=== PATIENT | female | born 1945 | race Caucasian/White ===

== ENCOUNTER 2017-10-07 16:44 | Inpatient (IN) | payer OTHER ==
--- NOTE | 2017-10-07 17:31 | ED PDOC ---
HPI: Trauma/Fall - HPI Time Seen by Provider: 10/07/17 17:08 Chief Complaint (Nursing): Trauma Chief Complaint (Provider): Trauma History Per: Patient Onset/Duration Of Symptoms: Days (x 1) Injury Occurred (Timing): Today @ Additional Complaint(s): Marisol is a 72 year old female with a past medical history of Atrial Fibrillation who was brought by EMS to Emergency Department for trauma. Per EMS , patient is on Aspirin. Patient states she tripped and landed on her right arm today, and has moderate pain to her right arm and shoulder. Denies elbow injury, head injury and loss of consciousness. Patient has controlled hypertension with medications from [facility]. Patient is currently not on anticoagulants. Tetanus not up to date PMD: No Family Provider Past Medical History Reviewed: Historical Data, Nursing Documentation, Vital Signs Vital Signs: Last Vital Signs Temp 98.3 F 10/07/17 16:46 Pulse 63 10/07/17 16:46 Resp 18 10/07/17 16:46 BP 161/97 H 10/07/17 16:46 Pulse Ox 98 10/07/17 20:43 - Medical History Other PMH: MEDS: ASA 100MG/BISOPROLOL 2.5 MG DAILY/LISIONPRIL 20MG/HCTZ 12.5MG DAILY - Family History Family History: States: No Known Family Hx - Home Medications Home Medications: Ambulatory Orders Medication Instructions Recorded Alprazolam [Xanax] 0.75 mg pe PO PRN PRN 10/07/17 Lisinopril/Hydrochlorothiazide 0.5 - 1 tab PO DAILY 10/07/17 [Lisinopril-Hctz 20-12.5 mg Tab] Patient Own Control [Patient Own 1 tab PO DAILY 10/07/17 Control] Patient Own Control [Patient Own 1 tab PO DAILY 10/07/17 Control] - Allergies Allergies/Adverse Reactions: Allergies Allergy/AdvReac Type Severity Reaction Status Date / Time No Known Allergies Allergy Verified 10/07/17 16:46 Review of Systems ROS Statement: Except As Marked, All Systems Reviewed And Found Negative Musculoskeletal: Positive for: Shoulder Pain (Right), Arm Pain (Right). Negative for: Other (Elbow Pain) Physical Exam - Reviewed Nursing Documentation Reviewed: Yes Vital Signs Reviewed: Yes - Physical Exam Appears: Positive for: Well, Non-toxic Head Exam: Positive for: ATRAUMATIC, NORMAL INSPECTION, NORMOCEPHALIC Eye Exam: Positive for: Normal appearance Extremity: Positive for: Other (2 cm abrasion noted of her patellar surface- right knee) Neurologic/Psych: Positive for: Alert, Oriented - Laboratory Results Result Diagrams: 10/07/17 19:20 10/07/17 19:20 - ECG O2 Sat by Pulse Oximetry: 98 (RA) Pulse Ox Interpretation: Normal - Progress ED Course And Treament: ACETAMINOPHEN 650MG X 1 DOSE XRY RIGHT SHOULDER: (+) FX OF HUMERUS D/W DR. ELY. DR. MILLER IN ED TO SEE PATIENT. PATIENT TO BE ADMITTED FOR OR ON MONDAY. Medical Decision Making Medical Decision Making: Time: 17:12 Plan: - Adacel 0.5 ml IM - Tylenol 325 mg tab - Right Shoulder X-Ray Time: 17:58 - Discussed with patient about X-ray results. Time: 18:19 - Morphine 4 mg IVP once - Zofran Inj - CBC - PTT - Prothrombin Time - Partial Thromboplastin - BMP - Type and Screen Time: 20:11 - Discussed with Dr. Berg on medical service for admission. Will request Dr. Humphries (sugar mixer) to clear for OR. Scribe Attestation: Documented by Brayan Fraser, acting as a scribe for Meliton Del Angel PA-C Provider Scribe Attestation: All medical record entries made by the Scribe were at my direction and personally dictated by me. I have reviewed the chart and agree that the record accurately reflects my personal performance of the history, physical exam, medical decision making, and the department course for this patient. I have also personally directed, reviewed, and agree with the discharge instructions and disposition. Disposition - Clinical Impression Clinical Impression: Proximal humerus fracture - Patient ED Disposition Is Patient to be Admitted: Yes Discussed With : Christin Berg (on medical service for admission. Will request Dr. Humphries (House Painting Instructor) to clear for OR.) Doctor Will See Patient In The: Hospital - Disposition Referrals: FAMILY PROVIDER,NO [Primary Care Provider] - Disposition Time: 20:11 Condition: FAIR Instructions: Arm Fracture in Adults (ED) Forms: Ask Ziggy (Nepalese)
[2017-10-07] MEDS ORDERED: Tetanus/Diphtheria Toxoids 0.5 ml Syringe IM ONE (17:37)
[2017-10-07] MEDS ORDERED: Morphine 4 MG/ML VIAL ONE (19:09)
[2017-10-07 19:39] LABS: BASO % 0.2 % (0.0-2.0); EOS # 0.1 K/uL (0.0-0.7); EOS % 0.8 % (0.0-4.0); HEMATOCRIT 40.7 % (34.0-47.0); LYMPH # 1.7 K/uL (1.0-4.3); MEAN CELL VOLUME 91.2 fl (81.0-99.0); MEAN CORPUSCULAR HEMOGLOBIN 30.6 pg (27.0-31.0); MEAN CORPUSCULAR HGB CONC 33.5 g/dL (33.0-37.0); MEAN PLATELET VOLUME 8.5 fl (7.2-11.7); MONO # 0.5 K/uL (0.0-0.8); MONO % 5.5 % (0.0-10.0); NEUT # 6.5 K/uL (1.8-7.0); NEUT % 74.5 % (50.0-75.0); NRBC % 0.1 % (0.0-0.0); RED CELL DISTRIBUTION WIDTH 12.8 % (11.5-14.5); WHITE BLOOD COUNT 8.8 K/uL (4.8-10.8)
[2017-10-07 19:43] LABS: PARTIAL THROMBOPLASTIN TIME 34.3 Seconds (25.6-37.1)
[2017-10-07 19:50] LABS: CALCIUM 9.1 mg/dL (8.4-10.2)
--- NOTE | 2017-10-07 21:12 | CT ---
EXAM: CT Right Upper Extremity Without Intravenous Contrast, Shoulder CLINICAL HISTORY: 72 years old, female; Injury or trauma; Fall; Initial encounter; Fracture, traumatic injury; Displaced; Humerus; Right; Neck of humerus; Injury date: Today; Injury details: S/P falling/ tripped; Patient HX: A-fib HTN. Hysterectomy; Additional info: R/O FX of humerus TECHNIQUE: Axial computed tomography images of the right shoulder without intravenous contrast. All CT scans at this facility use one or more dose reduction techniques, viz.: automated exposure control; ma/kV adjustment per patient size (including targeted exams where dose is matched to indication; i.e. head); or iterative reconstruction technique. Coronal reformatted images were created and reviewed. COMPARISON: No relevant prior studies available. FINDINGS: Bones/joints: Comminuted fracture RIGHT proximal humerus involving surgical neck, greater tuberosity, lesser tuberosity. Mild impaction at level of surgical neck. Mild displacement of greater tuberosity fracture fragment. Mild degenerative changes of spine. No dislocation. Soft tissues: Soft tissue swelling about shoulder girdle. Lymph nodes: Calcified mediastinal and hilar lymph nodes. Lung apices: Minimal atelectasis/scarring. IMPRESSION: 1. RIGHT proximal humerus fracture. 2. Incidental/non-acute findings are described above.
[2017-10-08] MEDS: Oxycodone/Acetaminophen 5/325 mg Tab PO PRN ×3 (04:17→22:32)
--- NOTE | 2017-10-08 07:03 | RAD ---
PROCEDURE: CHEST RADIOGRAPH, 1 VIEW HISTORY: ROUTINE COMPARISON: None available. FINDINGS: LUNGS: Clear. PLEURA: No pneumothorax or pleural fluid seen. CARDIOVASCULAR: Normal. OSSEOUS STRUCTURES: No significant abnormalities. VISUALIZED UPPER ABDOMEN: Normal. OTHER FINDINGS: None. IMPRESSION: No active disease.
--- NOTE | 2017-10-08 07:05 | RAD ---
PROCEDURE: Radiographs of the Right Shoulder HISTORY: SHOULDER INJURY COMPARISON: No prior. FINDINGS: BONES: Greater tuberosity displaced fracture. JOINTS: Normal. Glenohumeral and acromioclavicular joints preserved. No osteoarthritis. SOFT TISSUES: Normal. OTHER FINDINGS: None. IMPRESSION: Greater tuberosity displaced fracture.
[2017-10-08 08:47] LABS: HEMATOCRIT 35.5 % (34.0-47.0); MEAN CELL VOLUME 90.8 fl (81.0-99.0); MEAN CORPUSCULAR HEMOGLOBIN 31.1 pg (27.0-31.0); MEAN CORPUSCULAR HGB CONC 34.2 g/dL (33.0-37.0); RED CELL DISTRIBUTION WIDTH 12.9 % (11.5-14.5); WHITE BLOOD COUNT 7.8 K/uL (4.8-10.8)
[2017-10-08 08:57] LABS: BLOOD UREA NITROGEN 23 mg/dl (7-17); CALCIUM 8.5 mg/dL (8.4-10.2); CARBON DIOXIDE 29 mmol/L (22-30); CHLORIDE 105 mmol/L (98-107); GFR AFRICAN-AMERICAN > 60; GLUCOSE,RANDOM 112 mg/dL (65-105); SODIUM 141 mmol/l (132-148)
[2017-10-08] MEDS ORDERED: Pneumococcal 23-Valent Vaccine IM ONE (09:00)
--- NOTE | 2017-10-08 10:55 | CP.PCM.HP ---
History of Present Illness - History of Present Illness History of Present Illness: CC: Fall, and Right Shoulder Pain History of Present Illness: A 72 year old female with a past medical history of Atrial Fibrillation who was brought by EMS to Emergency Department for trauma. Per EMS, patient is on Aspirin. Patient states she tripped and landed on her right arm today, and has moderate pain to her right arm and shoulder. Denies elbow injury, head injury and loss of consciousness. Patient has controlled hypertension with medications from [facility]. Patient is currently not on anticoagulants. Tetanus not up to date Present on Admission - Present on Admission Any Indicators Present on Admission: No Review of Systems - Review of Systems All systems: reviewed and no additional remarkable complaints except - Cardiovascular Cardiovascular: As Per HPI, Irregular Heart Rhythm. absent: Chest Pain Past Patient History - Infectious Disease Hx of Infectious Diseases: None - Past Medical History & Family History Past Medical History?: Yes Past Family History: Reviewed and not pertinent - Past Social History Smoking Status: Former Smoker Alcohol: None Drugs: Denies - CARDIAC Hx Cardiac Disorders: Yes Hx Atrial Fibrillation: Yes Hx Hypertension: Yes - PULMONARY Hx Respiratory Disorders: Yes Hx Bronchitis: Yes - NEUROLOGICAL Hx Neurological Disorder: No - HEENT Hx HEENT Problems: No - RENAL Hx Chronic Kidney Disease: No - ENDOCRINE/METABOLIC Hx Endocrine Disorders: No Hx Diabetes Mellitus Type 2: No - HEMATOLOGICAL/ONCOLOGICAL Hx Blood Disorders: No Hx AIDS: No Hx Hepatitis C: No Hx Human Immunodeficiency Virus (HIV): No - INTEGUMENTARY Hx Dermatological Problems: No - MUSCULOSKELETAL/RHEUMATOLOGICAL Hx Musculoskeletal Disorders: No Hx Falls: No - GASTROINTESTINAL Hx Gastrointestinal Disorders: No - GENITOURINARY/GYNECOLOGICAL Hx Genitourinary Disorders: Yes Hx Ovarian Cancer: Yes (2001 no RT of chemo, only full hysterectomy done) - PSYCHIATRIC Hx Psychophysiologic Disorder: Yes Hx Anxiety: Yes Hx Substance Use: No - SURGICAL HISTORY Hx Surgeries: Yes Hx Appendectomy: Yes Hx Section: Yes Hx Hysterectomy: Yes - ANESTHESIA Hx Anesthesia: Yes Hx Anesthesia Reactions: No Meds Home Medications: Home Medication List Medication Instructions Recorded Confirmed Type oxyCODONE/Acetaminophen [Percocet 1 tab PO Q8 PRN #10 tab 10/13/17 Rx 5/325 mg Tab] Allergies/Adverse Reactions: Allergies Allergy/AdvReac Type Severity Reaction Status Date / Time No Known Allergies Allergy Verified 10/07/17 16:46 Physical Exam - Constitutional Appears: Well, No Acute Distress - Head Exam Head Exam: ATRAUMATIC, NORMAL INSPECTION, NORMOCEPHALIC - Eye Exam Eye Exam: EOMI, Normal appearance, PERRL Pupil Exam: NORMAL ACCOMODATION, PERRL - ENT Exam ENT Exam: Mucous Membranes Moist, Normal Exam - Neck Exam Neck exam: Positive for: Full Rom, Normal Inspection - Respiratory Exam Respiratory Exam: Clear to Auscultation Bilateral, NORMAL BREATHING PATTERN - Cardiovascular Exam Cardiovascular Exam: Irregular Rhythm, +S1, +S2 - GI/Abdominal Exam GI & Abdominal Exam: Normal Bowel Sounds, Soft. absent: Tenderness - Back Exam Back exam: FULL ROM, NORMAL INSPECTION. absent: CVA tenderness (L), CVA tenderness (R) - Neurological Exam Neurological exam: Alert, CN II-XII Intact, Normal Gait, Oriented x3, Reflexes Normal - Psychiatric Exam Psychiatric exam: Normal Affect, Normal Mood - Skin Skin Exam: Dry, Intact, Normal Color, Warm Results - Vital Signs Recent Vital Signs: Last Vital Signs Temp 98.2 F 10/08/17 08:11 Pulse 91 H 10/08/17 08:54 Resp 20 10/08/17 08:11 BP 125/75 10/08/17 08:54 Pulse Ox 98 10/08/17 08:11 - Labs Result Diagrams: 10/17/17 05:00 10/17/17 05:00 Labs: Laboratory Results - last 24 hr 10/07/17 10/07/17 10/07/17 19:20 19:20 19:20 WBC 8.8 RBC 4.47 Hgb 13.7 Hct 40.7 MCV 91.2 MCH 30.6 MCHC 33.5 RDW 12.8 Plt Count 214 MPV 8.5 Neut % (Auto) 74.5 Lymph % (Auto) 19.0 L [place] % (Auto) 5.5 Eos % (Auto) 0.8 Baso % (Auto) 0.2 Neut # 6.5 Lymph # 1.7 [place] # 0.5 Eos # 0.1 Baso # 0.0 PT 11.4 INR 1.0 APTT 34.3 Sodium 143 Potassium 4.0 Chloride 104 Carbon Dioxide 29 Anion Gap 14 BUN 26 H Creatinine 1.1 Est GFR ( Amer) 59 Est GFR (Non-Af Amer) 49 Random Glucose 111 H Calcium 9.1 Blood Type Blood Type Confirm Antibody Screen BBK History Checked 10/07/17 10/07/17 10/08/17 19:20 19:20 05:45 WBC 7.8 RBC 3.91 Hgb 12.2 Hct 35.5 MCV 90.8 MCH 31.1 H MCHC 34.2 RDW 12.9 Plt Count 209 MPV Neut % (Auto) Lymph % (Auto) [place] % (Auto) Eos % (Auto) Baso % (Auto) Neut # Lymph # [place] # Eos # Baso # PT INR APTT Sodium Potassium Chloride Carbon Dioxide Anion Gap BUN Creatinine Est GFR ( Amer) Est GFR (Non-Af Amer) Random Glucose Calcium Blood Type O POSITIVE Blood Type Confirm O POSITIVE Antibody Screen Negative BBK History Checked No verified bt 10/08/17 05:45 WBC RBC Hgb Hct MCV MCH MCHC RDW Plt Count MPV Neut % (Auto) Lymph % (Auto) [place] % (Auto) Eos % (Auto) Baso % (Auto) Neut # Lymph # [place] # Eos # Baso # PT INR APTT Sodium 141 Potassium 4.0 Chloride 105 Carbon Dioxide 29 Anion Gap 11 BUN 23 H Creatinine 1.0 Est GFR ( Amer) > 60 Est GFR (Non-Af Amer) 54 Random Glucose 112 H Calcium 8.5 Blood Type Blood Type Confirm Antibody Screen BBK History Checked - Imaging and Cardiology X-ray Right Shoulder: Status: Report reviewed by me Additional comment: IMPRESSION: Greater Tuberosity Displaced Fracture. CT of the Right Shoulder: Status: Report reviewed by me Additional comment: IMPRESSION: RIGHT proximal humerus fracture. Assessment & Plan (1) Proximal humerus fracture Assessment and Plan: Sling Pain Medication PRN Serial EKG and Trop TTE for Cardiology Clearance Cardiology Consult for clearance Status: Acute (2) Atrial fibrillation and flutter Status: Chronic (3) Hypertension Status: Chronic
[2017-10-08] MEDS ORDERED: Lactulose 10 gm/15 ml Syrup PO ONE (12:41)
--- NOTE | 2017-10-08 14:00 | CP.PCM.CON ---
History of Present Illness - History of Present Illness History of Present Illness: This 72-year-old chronically overweight hypertensive female was brought to the emergency room following a fall during which she injured her right upper extremity. She gives history of having been told off a single episode of atrial fibrillation approximately 10 years back following which she has been taking a beta blocking drug. She has also been placed on an anti-hypertensive medication and an aspirin every day. The last dose of aspirin she has taken yesterday afternoon. She has never experienced any chest pain or myocardial infarction or symptoms of congestive cardiac failure. According to her daughter patient is extremely active and can climb a flight of stairs on multiple occasions in the course of an average day and is able to walk for 5 blocks without having to stop. She has never experienced pedal edema or orthopnea. She is not a diabetic and she quit smoking more than 10 years back. Physical examination shows an elderly lady alert awake and coherent afebrile with a pulse rate of 62 bpm and regular and a blood pressure of 164/78 mmHg. Her jugular venous pressure was not elevated and there was no edema of her lower extremity. Her pedal pulses were feeble but distinctive present. There were no carotid bruits. Thyroid and breast did not reveal anything abnormal. Her extremities were warm nailbeds were pink. There was no central or peripheral cyanosis. There was no clubbing. The apex was not palpable. First and second heart sounds were normal. There was no murmur and there were no rales and there was no gallop. Abdomen was soft liver and spleen are not palpable. Her right upper extremity was immobilized and in a sling. Her right knee had a superficial abrasion. Her electrocardiogram showed sinus rhythm with a tiny Q wave in V2 but otherwise normal EKG pattern. Lab data was noted. Impression: A right humeral fracture during a fall. History of hypertension. History of atrial fibrillation. The patient will undergo an echocardiogram tomorrow to evaluate her left ventricular systolic function. In the meantime I have increased her dose of lisinopril from 5 mg to 10 mg every day with 12.5 mg of hydrochlorothiazide to control her systolic blood pressure better. The patient otherwise appears stable to proceed with the planned surgery. I have discussed the issue of her recent aspirin use with the orthopedic physician. Past Patient History - Infectious Disease Hx of Infectious Diseases: None - Past Medical History & Family History Past Medical History?: Yes - Past Social History Smoking Status: Former Smoker - CARDIAC Hx Cardiac Disorders: Yes Hx Atrial Fibrillation: Yes Hx Hypertension: Yes - PULMONARY Hx Respiratory Disorders: Yes Hx Bronchitis: Yes - NEUROLOGICAL Hx Neurological Disorder: No - HEENT Hx HEENT Problems: No - RENAL Hx Chronic Kidney Disease: No - ENDOCRINE/METABOLIC Hx Endocrine Disorders: No Hx Diabetes Mellitus Type 2: No - HEMATOLOGICAL/ONCOLOGICAL Hx Blood Disorders: No Hx AIDS: No Hx Hepatitis C: No Hx Human Immunodeficiency Virus (HIV): No - INTEGUMENTARY Hx Dermatological Problems: No - MUSCULOSKELETAL/RHEUMATOLOGICAL Hx Musculoskeletal Disorders: No Hx Falls: No - GASTROINTESTINAL Hx Gastrointestinal Disorders: No - GENITOURINARY/GYNECOLOGICAL Hx Genitourinary Disorders: Yes Hx Ovarian Cancer: Yes (2002 no RT of chemo, only full hysterectomy done) - PSYCHIATRIC Hx Psychophysiologic Disorder: Yes Hx Anxiety: Yes Hx Substance Use: No - SURGICAL HISTORY Hx Surgeries: Yes Hx Appendectomy: Yes Hx Section: Yes Hx Hysterectomy: Yes - ANESTHESIA Hx Anesthesia: Yes Hx Anesthesia Reactions: No Meds Allergies/Adverse Reactions: Allergies Allergy/AdvReac Type Severity Reaction Status Date / Time No Known Allergies Allergy Verified 10/07/17 16:46 - Medications Medications: Current Medications Acetaminophen (Tylenol 325mg Tab) 650 mg PO Q6 PRN PRN Reason: Pain, moderate (4-7) Last Admin: 10/08/17 06:54 Dose: 650 mg Alprazolam (Xanax) 0.75 mg PO HS PRN PRN Reason: anxiety/insomnia Stop: 10/14/17 23:00 Last Admin: 10/08/17 00:02 Dose: 0.75 mg Bisoprolol Fumarate (Zebeta) 1.25 mg PO DAILY [facility] Last Admin: 10/08/17 08:54 Dose: 1.25 mg Heparin Sodium (Porcine) (Heparin) 5,000 units SC Q12 [facility] PRN Reason: Protocol Last Admin: 10/08/17 08:53 Dose: 5,000 units Hydrochlorothiazide (Microzide) 12.5 mg PO DAILY [facility] Lisinopril (Zestril) 10 mg PO DAILY [facility] Oxycodone/Acetaminophen (Percocet 5/325 Mg Tab) 1 tab PO Q6 PRN PRN Reason: Pain, severe (8-10) Stop: 10/10/17 23:11 Last Admin: 10/08/17 11:28 Dose: 1 tab Results - Vital Signs Recent Vital Signs: Last Vital Signs Temp 98.2 F 10/08/17 08:11 Pulse 91 H 10/08/17 08:54 Resp 20 10/08/17 08:11 BP 125/75 10/08/17 08:54 Pulse Ox 98 10/08/17 08:11 - Labs Result Diagrams: 10/08/17 05:45 10/08/17 05:45 Labs: Laboratory Results - last 24 hr 10/07/17 10/07/17 10/07/17 19:20 19:20 19:20 WBC 8.8 RBC 4.47 Hgb 13.7 Hct 40.7 MCV 91.2 MCH 30.6 MCHC 33.5 RDW 12.8 Plt Count 214 MPV 8.5 Neut % (Auto) 74.5 Lymph % (Auto) 19.0 L [place] % (Auto) 5.5 Eos % (Auto) 0.8 Baso % (Auto) 0.2 Neut # 6.5 Lymph # 1.7 [place] # 0.5 Eos # 0.1 Baso # 0.0 PT 11.4 INR 1.0 APTT 34.3 Sodium 143 Potassium 4.0 Chloride 104 Carbon Dioxide 29 Anion Gap 14 BUN 26 H Creatinine 1.1 Est GFR ( Amer) 59 Est GFR (Non-Af Amer) 49 Random Glucose 111 H Calcium 9.1 Blood Type Blood Type Confirm Antibody Screen BBK History Checked 10/07/17 10/07/17 10/08/17 19:20 19:20 05:45 WBC 7.8 RBC 3.91 Hgb 12.2 Hct 35.5 MCV 90.8 MCH 31.1 H MCHC 34.2 RDW 12.9 Plt Count 209 MPV Neut % (Auto) Lymph % (Auto) [place] % (Auto) Eos % (Auto) Baso % (Auto) Neut # Lymph # [place] # Eos # Baso # PT INR APTT Sodium Potassium Chloride Carbon Dioxide Anion Gap BUN Creatinine Est GFR ( Amer) Est GFR (Non-Af Amer) Random Glucose Calcium Blood Type O POSITIVE Blood Type Confirm O POSITIVE Antibody Screen Negative BBK History Checked No verified bt 10/08/17 05:45 WBC RBC Hgb Hct MCV MCH MCHC RDW Plt Count MPV Neut % (Auto) Lymph % (Auto) [place] % (Auto) Eos % (Auto) Baso % (Auto) Neut # Lymph # [place] # Eos # Baso # PT INR APTT Sodium 141 Potassium 4.0 Chloride 105 Carbon Dioxide 29 Anion Gap 11 BUN 23 H Creatinine 1.0 Est GFR ( Amer) > 60 Est GFR (Non-Af Amer) 54 Random Glucose 112 H Calcium 8.5 Blood Type Blood Type Confirm Antibody Screen BBK History Checked
--- NOTE | 2017-10-08 14:14 | CARD ---
APPROVED REPORT EKG Measurement Heart [id number] <Conclusion> Sinus bradycardia Septal infarct, age undetermined Abnormal ECG
--- NOTE | 2017-10-09 01:05 | CON ---
DATE: 10/07/2017 ER CONSULTATION NOTE HISTORY OF PRESENT ILLNESS: Patient is a 72-year-old female who is evaluated for right shoulder pain. Patient had a mechanical fall, landing onto her right shoulder. Patient presented to the [facility] ER where the x-ray had shown a displaced three-part proximal humerus fracture. Patient denied any loss of consciousness, denied any paresthesias or motor weakness, denied any pain in any other extremity or joint. The patient is very active, lives independently. PHYSICAL EXAMINATION VITAL SIGNS: She is afebrile. Vital signs are stable. EXTREMITIES: On examination of patient's right elbow, the skin is intact with ecchymosis and swelling. Tenderness to palpation. Limited range of motion secondary to pain. Patient's medial, ulnar, radial, AI and PI nerves intact distally. 2+ radial pulse. IMAGING: X-rays and CT scan of patient's right elbow showing a three-part intraarticular proximal humerus fracture. ASSESSMENT AND PLAN: A 72-year-old female with right shoulder traumatic three-part proximal humerus fracture. TREATMENT: I had a detailed discussion with the patient and her family. I explained the complex nature of the surgery. I presented the patient with the option of both nonoperative and operative management. I reviewed the risk and benefits of both options with the patient. After careful consideration, patient and the family expressed the interest of proceeding with the surgical option ORIF vs shoulder replacement. I reviewed the risks and benefits of that option with the patient which includes bleeding, infection, nerve vessel damage, continued pain, symptomatic hardware, failure of hardware, nonunion, malunion, need for further surgery, instability among others. We will proceed. Patient will be admitted and she will undergo necessary preoperative medical workup. Once medically cleared, we will proceed with open reduction and internal fixation versus a reverse hemiarthroplasty. Patient and the family agrees with the plan and will admitted, would like to proceed. Christopher Xie MD [facility]
--- NOTE | 2017-10-09 09:20 | CP.PCM.PN ---
Subjective - Date & Time of Evaluation Date of Evaluation: 10/09/17 Time of Evaluation: 08:30 - Subjective Subjective: Anxious, but otherwise Okay. Moderate Rt arm pain+ BP 150/80 mm Hg Echo today. Objective - Vital Signs/Intake and Output Vital Signs (last 24 hours): Temp Pulse Resp BP Pulse Ox 98.8 F 62 20 143/84 95 10/09/17 07:55 10/09/17 07:55 10/09/17 07:55 10/09/17 07:55 10/09/17 07:55 - Medications Medications: Current Medications Acetaminophen (Tylenol 325mg Tab) 650 mg PO Q6 PRN PRN Reason: Pain, moderate (4-7) Last Admin: 10/09/17 04:28 Dose: 650 mg Alprazolam (Xanax) 0.75 mg PO HS PRN PRN Reason: anxiety/insomnia Stop: 10/14/17 23:00 Last Admin: 10/08/17 21:05 Dose: 0.75 mg Bisoprolol Fumarate (Zebeta) 1.25 mg PO DAILY [facility] Last Admin: 10/08/17 08:54 Dose: 1.25 mg Heparin Sodium (Porcine) (Heparin) 5,000 units SC Q12 [facility] PRN Reason: Protocol Last Admin: 10/08/17 21:05 Dose: 5,000 units Hydrochlorothiazide (Microzide) 12.5 mg PO DAILY [facility] Last Admin: 10/08/17 13:30 Dose: 12.5 mg Lisinopril (Zestril) 10 mg PO DAILY [facility] Last Admin: 10/08/17 14:30 Dose: 10 mg Ondansetron HCl (Zofran Inj) 4 mg IVP Q6 PRN PRN Reason: Nausea/Vomiting Last Admin: 10/08/17 22:33 Dose: 4 mg Oxycodone/Acetaminophen (Percocet 5/325 Mg Tab) 1 tab PO Q6 PRN PRN Reason: Pain, severe (8-10) Stop: 10/10/17 23:11 Last Admin: 10/08/17 22:32 Dose: 1 tab - Labs Labs: 10/08/17 05:45 10/08/17 05:45 PT 11.4 Seconds (9.8-13.1) 10/07/17 19:20 INR 1.0 (0.9-1.2) 10/07/17 19:20 APTT 34.3 Seconds (25.6-37.1) 10/07/17 19:20
[2017-10-09] MEDS: Oxycodone/Acetaminophen 5/325 mg Tab PO PRN (10:47)
--- NOTE | 2017-10-09 11:31 | CARD ---
APPROVED REPORT EXAM: Two-dimensional and M-mode echocardiogram with Doppler and color Doppler. Other Information Quality : AverageRhythm : NSR INDICATION Pre-Op 2D DIMENSIONS IVSd1.12 (0.7-1.1cm)LVDd4.27 (3.9-5.9cm) LVOT Diameter2.63 (1.8-2.4cm)PWd1.06 (0.7-1.1cm) IVSs1.26 (0.8-1.2cm)LVDs2.68 (2.5-4.0cm) FS (%) 37.2 %PWs1.24 (0.8-1.2cm) M-Mode DIMENSIONS Left Atrium (MM)4.94 (2.5-4.0cm)IVSd1.06 (0.7-1.1cm) Aortic Root3.31 (2.2-3.7cm)LVDd5.03 (4.0-5.6cm) Aortic Cusp Exc.2.03 (1.5-2.0cm)PWd1.19 (0.7-1.1cm) IVSs1.44 cmFS (%) 46 % LVDs2.72 (2.0-3.8cm)PWs1.56 cm Mitral Valve MV E Rcteqrrt39.6cm/sMV DECEL [id number] A Pqjhibfr57.2cm/s MV SEC48xaD/A ratio0.7MVA (PHT)3.21cm2 TDI E/Lateral E'0.0E/Medial E'0.0 Pulmonary Valve PV Peak Zmjykujj957.8cm/s LEFT VENTRICLE The left ventricle is normal size. There is normal left ventricular wall thickness. The left ventricular function is normal. The left ventricular ejection fraction is within the normal range. The Ejection Fraction is 60-65%. There is normal LV segmental wall motion. The left ventricular diastolic function is normal. No left ventricle thrombus noted on this study. There is no mass noted in the left ventricle. RIGHT VENTRICLE The right ventricle is normal size. There is normal right ventricular wall thickness. The right ventricular systolic function is normal. ATRIA The left atrium size is normal. The right atrium size is normal. The interatrial septum is intact with no evidence for an atrial septal defect. AORTIC VALVE The aortic valve is normal in structure. No aortic regurgitation is present. There is no aortic valvular stenosis. There is no aortic valvular vegetation. MITRAL VALVE The mitral valve is normal in structure. There is no evidence of mitral valve prolapse. There is no mitral valve stenosis. There is no mitral valve regurgitation noted. TRICUSPID VALVE The tricuspid valve is normal in structure. There is no tricuspid valve regurgitation noted. There is no tricuspid valve prolapse or vegetation. There is no tricuspid valve stenosis. PULMONIC VALVE The pulmonary valve is normal in structure. There is no pulmonic valvular regurgitation. There is no pulmonic valvular stenosis. GREAT VESSELS The aortic root is normal in size. The IVC is normal in size and collapses >50% with inspiration. PERICARDIAL EFFUSION The pericardium appears normal. There is no pleural effusion. <Conclusion> The left ventricle is normal size. The left ventricular function is normal. The left ventricular ejection fraction is within the normal range. The Ejection Fraction is 60-65%.
--- NOTE | 2017-10-09 12:58 | CP.PCM.CON ---
History of Present Illness - History of Present Illness History of Present Illness: 72 yo F with pmhx of htn and a-fib presents to ED after a trip and fall c/o right arm and shoulder pain. Pt denies any LOC or head trauma. Xrays of right shoulder reveal right humerus fx. Orthopaedics consulted for evaluation and treatment of fx. Pt is RHD. She denies any previous injury or trauma to RUE. She denies SOB, chest pain, N/V/D, numbness/tingling to RUE. Past Patient History - Infectious Disease Hx of Infectious Diseases: None - Past Medical History & Family History Past Medical History?: Yes - Past Social History Smoking Status: Former Smoker - CARDIAC Hx Cardiac Disorders: Yes Hx Atrial Fibrillation: Yes Hx Hypertension: Yes - PULMONARY Hx Respiratory Disorders: Yes Hx Bronchitis: Yes - NEUROLOGICAL Hx Neurological Disorder: No - HEENT Hx HEENT Problems: No - RENAL Hx Chronic Kidney Disease: No - ENDOCRINE/METABOLIC Hx Endocrine Disorders: No Hx Diabetes Mellitus Type 2: No - HEMATOLOGICAL/ONCOLOGICAL Hx Blood Disorders: No Hx AIDS: No Hx Hepatitis C: No Hx Human Immunodeficiency Virus (HIV): No - INTEGUMENTARY Hx Dermatological Problems: No - MUSCULOSKELETAL/RHEUMATOLOGICAL Hx Musculoskeletal Disorders: No Hx Falls: No - GASTROINTESTINAL Hx Gastrointestinal Disorders: No - GENITOURINARY/GYNECOLOGICAL Hx Genitourinary Disorders: Yes Hx Ovarian Cancer: Yes (2002 no RT of chemo, only full hysterectomy done) - PSYCHIATRIC Hx Psychophysiologic Disorder: Yes Hx Anxiety: Yes Hx Substance Use: No - SURGICAL HISTORY Hx Surgeries: Yes Hx Appendectomy: Yes Hx Section: Yes Hx Hysterectomy: Yes - ANESTHESIA Hx Anesthesia: Yes Hx Anesthesia Reactions: No Meds Allergies/Adverse Reactions: Allergies Allergy/AdvReac Type Severity Reaction Status Date / Time No Known Allergies Allergy Verified 10/07/17 16:46 - Medications Medications: Current Medications Acetaminophen (Tylenol 325mg Tab) 650 mg PO Q6 PRN PRN Reason: Pain, moderate (4-7) Last Admin: 10/09/17 04:28 Dose: 650 mg Alprazolam (Xanax) 0.75 mg PO HS PRN PRN Reason: anxiety/insomnia Stop: 10/14/17 23:00 Last Admin: 10/08/17 21:05 Dose: 0.75 mg Bisoprolol Fumarate (Zebeta) 1.25 mg PO DAILY [facility] Last Admin: 10/09/17 10:42 Dose: 1.25 mg Heparin Sodium (Porcine) (Heparin) 5,000 units SC Q12 [facility] PRN Reason: Protocol Last Admin: 10/09/17 10:39 Dose: 5,000 units Hydrochlorothiazide (Microzide) 12.5 mg PO DAILY [facility] Last Admin: 10/09/17 10:42 Dose: 12.5 mg Lisinopril (Zestril) 10 mg PO DAILY [facility] Last Admin: 10/09/17 10:41 Dose: 10 mg Ondansetron HCl (Zofran Inj) 4 mg IVP Q6 PRN PRN Reason: Nausea/Vomiting Last Admin: 10/09/17 10:43 Dose: 4 mg Oxycodone/Acetaminophen (Percocet 5/325 Mg Tab) 1 tab PO Q6 PRN PRN Reason: Pain, severe (8-10) Stop: 10/10/17 23:11 Last Admin: 10/09/17 10:47 Dose: 1 tab Physical Exam - Constitutional Appears: Well, No Acute Distress - Respiratory Exam Respiratory Exam: Clear to Auscultation Bilateral, NORMAL BREATHING PATTERN - Cardiovascular Exam Cardiovascular Exam: REGULAR RHYTHM, RRR - Extremities Exam Additional comments: RUE: Pt currently in RUE sling +ttp proximal humerus and over GT ROM limited due to pain N/V intact distally All compartments of right arm soft and compressible Radial and ulna pulses wnl Results - Vital Signs Recent Vital Signs: Last Vital Signs Temp 98.8 F 10/09/17 07:55 Pulse 62 10/09/17 10:41 Resp 20 10/09/17 07:55 BP 143/84 10/09/17 10:41 Pulse Ox 95 10/09/17 07:55 - Labs Result Diagrams: 10/08/17 05:45 10/08/17 05:45 Assessment & Plan - Assessment and Plan (Free Text) Assessment: 72 yo F, RHD, with pmhx of htn and a-fib presents with right shoulder comminuted displaced proximal humerus fx Plan: Xrays of right shoulder were reviewed, revealing displaced fx of GT of prox humerus CT RUE revealed Rt comminuted prox humerus fx involving the surgical neck, GT, LT Pt will require surgical fixation of displaced rt prox humerus fx pending cardiac and medical clearance ORIF rt humerus fx vs. Reverse shoulder arthroplasty Pre-op for sx tx tmrw 10/10 NPO after midnight except meds Pain Control F/U echo/cardiac and med clearance
--- NOTE | 2017-10-09 20:40 | CP.PCM.PN ---
Subjective - Date & Time of Evaluation Date of Evaluation: 10/09/17 Time of Evaluation: 16:05 Objective - Vital Signs/Intake and Output Vital Signs (last 24 hours): Temp Pulse Resp BP Pulse Ox 98.8 F 61 20 139/80 93 L 10/09/17 16:38 10/09/17 16:38 10/09/17 16:38 10/09/17 16:38 10/09/17 16:38 - Medications Medications: Current Medications Acetaminophen (Tylenol 325mg Tab) 650 mg PO Q6 PRN PRN Reason: Pain, moderate (4-7) Last Admin: 10/09/17 17:29 Dose: 650 mg Alprazolam (Xanax) 0.75 mg PO HS PRN PRN Reason: anxiety/insomnia Stop: 10/14/17 23:00 Last Admin: 10/08/17 21:05 Dose: 0.75 mg Bisoprolol Fumarate (Zebeta) 1.25 mg PO DAILY [facility] Last Admin: 10/09/17 10:42 Dose: 1.25 mg Heparin Sodium (Porcine) (Heparin) 5,000 units SC Q12 [facility] PRN Reason: Protocol Last Admin: 10/09/17 10:39 Dose: 5,000 units Hydrochlorothiazide (Microzide) 12.5 mg PO DAILY [facility] Last Admin: 10/09/17 10:42 Dose: 12.5 mg Lisinopril (Zestril) 10 mg PO DAILY [facility] Last Admin: 10/09/17 10:41 Dose: 10 mg Ondansetron HCl (Zofran Inj) 4 mg IVP Q6 PRN PRN Reason: Nausea/Vomiting Last Admin: 10/09/17 10:43 Dose: 4 mg Oxycodone/Acetaminophen (Percocet 5/325 Mg Tab) 1 tab PO Q6 PRN PRN Reason: Pain, severe (8-10) Stop: 10/10/17 23:11 Last Admin: 10/09/17 10:47 Dose: 1 tab - Labs Labs: 10/08/17 05:45 10/08/17 05:45 PT 11.4 Seconds (9.8-13.1) 10/07/17 19:20 INR 1.0 (0.9-1.2) 10/07/17 19:20 APTT 34.3 Seconds (25.6-37.1) 10/07/17 19:20
[2017-10-10] MEDS: Oxycodone/Acetaminophen 5/325 mg Tab PO PRN (03:15)
[2017-10-10 06:23] LABS: MEAN CELL VOLUME 91.8 fl (81.0-99.0); MEAN CORPUSCULAR HEMOGLOBIN 30.5 pg (27.0-31.0); MEAN CORPUSCULAR HGB CONC 33.2 g/dL (33.0-37.0); RED CELL DISTRIBUTION WIDTH 12.6 % (11.5-14.5); WHITE BLOOD COUNT 9.6 K/uL (4.8-10.8)
[2017-10-10] MEDS: Dextrose 5%/0.45% NS 1,000 ML IV SCH ×2 (06:46→19:15)
[2017-10-10 06:55] LABS: BLOOD UREA NITROGEN 16 mg/dl (7-17); CALCIUM 9.1 mg/dL (8.4-10.2); CARBON DIOXIDE 31 mmol/L (22-30); CHLORIDE 99 mmol/L (98-107); GFR AFRICAN-AMERICAN > 60; GLUCOSE,RANDOM 114 mg/dL (65-105); POTASSIUM 4.1 MMOL/L (3.6-5.0); SODIUM 140 mmol/l (132-148)
--- NOTE | 2017-10-10 07:47 | CP.PCM.PN ---
Subjective - Date & Time of Evaluation Date of Evaluation: 10/10/17 Time of Evaluation: 07:40 - Subjective Subjective: Vital signs stable Labs are stable Reviewed echo images Mild LVH with preserved LV syst function and depressed diastolic compliance No significant valvulopathy Pt stable for surgery under necessary anesthesia. Objective - Vital Signs/Intake and Output Vital Signs (last 24 hours): Temp Pulse Resp BP Pulse Ox 98.4 F 63 18 149/86 95 10/10/17 05:15 10/10/17 05:15 10/10/17 05:15 10/10/17 05:15 10/10/17 05:15 - Medications Medications: Current Medications Acetaminophen (Tylenol 325mg Tab) 650 mg PO Q6 PRN PRN Reason: Pain, moderate (4-7) Last Admin: 10/09/17 17:29 Dose: 650 mg Alprazolam (Xanax) 0.75 mg PO HS PRN PRN Reason: anxiety/insomnia Stop: 10/14/17 23:00 Last Admin: 10/09/17 21:03 Dose: 0.75 mg Bisoprolol Fumarate (Zebeta) 1.25 mg PO DAILY [facility] Last Admin: 10/10/17 06:07 Dose: 1.25 mg Heparin Sodium (Porcine) (Heparin) 5,000 units SC Q12 [facility] PRN Reason: Protocol Last Admin: 10/09/17 21:04 Dose: 5,000 units Hydrochlorothiazide (Microzide) 12.5 mg PO DAILY [facility] Last Admin: 10/09/17 10:42 Dose: 12.5 mg Dextrose/Sodium Chloride (Dextrose 5%/0.45% Ns 1000 Ml) 1,000 mls @ 80 mls/hr IV .[id number] [facility] Stop: 10/11/17 06:31 Last Admin: 10/10/17 06:46 Dose: 80 mls/hr Lisinopril (Zestril) 10 mg PO DAILY [facility] Last Admin: 10/09/17 10:41 Dose: 10 mg Ondansetron HCl (Zofran Inj) 4 mg IVP Q6 PRN PRN Reason: Nausea/Vomiting Last Admin: 10/09/17 10:43 Dose: 4 mg Oxycodone/Acetaminophen (Percocet 5/325 Mg Tab) 1 tab PO Q6 PRN PRN Reason: Pain, severe (8-10) Stop: 10/10/17 23:11 Last Admin: 10/10/17 03:15 Dose: 1 tab - Labs Labs: 10/10/17 06:05 10/10/17 06:05 PT 11.4 Seconds (9.8-13.1) 10/07/17 19:20 INR 1.0 (0.9-1.2) 10/07/17 19:20 APTT 34.3 Seconds (25.6-37.1) 10/07/17 19:20
[2017-10-10] MEDS ORDERED: Rocuronium 10 mg/ml (5 ml) ONE (08:24)
[2017-10-10] MEDS ORDERED: Lidocaine 4% (Laryng-O-Jet) Kit MM ONE (08:24)
[2017-10-10] MEDS ORDERED: Propofol 10 mg/ml Inj (20 ML) ONE (08:24)
[2017-10-10] MEDS ORDERED: Succinylcholine 200 mg/10 ml Inj IV ONE (08:24)
[2017-10-10] MEDS ORDERED: Midazolam 2 MG/2 ML VIAL ONE (08:24)
[2017-10-10] MEDS ORDERED: Phenylephrine 10 mg/ml Inj ONE (08:25)
[2017-10-10] MEDS ORDERED: Etomidate 20 mg/10ml Inj IV ONE (08:25)
[2017-10-10] MEDS ORDERED: SENSORCAINE 0.5% W/EPINEPHRINE 50ML MDV IJ ONE (08:37)
[2017-10-10] MEDS ORDERED: Ropivacaine 0.5% 30ML IV ONE (08:38)
[2017-10-10] MEDS ORDERED: Bupivacaine 0.5% Inj(30mL) ONE (08:58)
[2017-10-10] MEDS ORDERED: Sodium Chloride 0.9% 0 ML IV ONE (08:58)
[2017-10-10] MEDS ORDERED: EPINEPHrine 1 mg/ml (1:1000) Inj ONE (08:58)
[2017-10-10] MEDS ORDERED: ceFAZolin IV 1 gm in Dextrose 2 GM/100 ML BAG IVPB ONE (08:59)
[2017-10-10] MEDS ORDERED: Lactated Ringer's 1,000 ML IV ONE ×3 (09:03→11:00)
[2017-10-10] MEDS ORDERED: ePHEDrine 50 mg/ml Inj ONE (09:36)
[2017-10-10] MEDS ORDERED: Dexamethasone 4 mg/1 ml ONE (10:01)
[2017-10-10] MEDS ORDERED: Neostigmine Methylsulfate 3mg/3ml Syringe IV ONE (11:13)
--- NOTE | 2017-10-10 11:50 | PCM.SURG1 ---
Surgeon's Initial Post Op Note - Surgeon's Notes Surgeon: Christopher Xie MD Director Customer: Korey Rueda MD; Fidencio Crespo PA-C Type of Anesthesia: General Endo, Other (interscalene block ) Pre-Operative Diagnosis: Right comminuted displaced proximal humerus fx Operative Findings: see op report Post-Operative Diagnosis: same as pre-op dx Operation Performed: ORIF Right proximal humerus fx Specimen/Specimens Removed: none Estimated Blood Loss: EBL {In ML}: 250 Date of Surgery/Procedure: 10/10/17 Time of Surgery/Procedure: 10:00
[2017-10-10] MEDS ORDERED: HYDROmorphone 0.5 mg/0.5 ml ISec IVP PRN (11:52)
--- NOTE | 2017-10-10 11:52 | PCM.ANESB1 ---
Interscalene Block - Brachial Plexus Date of Procedure: 10/10/17 Anesthesiologist: Dustin Pre-Procedure Diagnosis: Right shoulder ORIF Post-Procedure Diagnosis: Same Procedure Performed: Interscalene Block of Brachial Plexus Right - Procedure Interscalene Block of Brachial Plexus: This procedure was explained to the patient that it is for post-operative pain management. Consent was obtained after a thorough discussion with the patient regarding the benefits and possible complications of local anesthetic block of the Brachial Plexus at the Interscalene area. The patient was brought to the Operating Room and standard monitors were applied. Time out was held with the circulating nurse to confirm the correct surgery and appropriate block. After applying Oxygen by nasal cannula and administering IV Sedation, the patient's head was gently rotated away from the ___right___operative shoulder and the anterior scalene groove was carefully palpated. The ultrasound transducer was then applied to the skin in the transverse plane and the brachial plexus was visualized lateral to the carotid artery and in between the anterior and middle scalene muscles. After identification,the anterior lateral portion of the neck was prepped with Betadine solution three times and Lidocaine 1% was injected subcutaneously for topical analgesia. At this point, a # 22 gauge Stimuplex 2 inches insulated needle was inserted into the interscalene groove and directed in a caudal and midline direction. The needle was inserted lateral to the ultrasound transducer in-plane towards the brachial plexus in a [id number] direction. Needle advancement was performed carefully under direct ultrasound visualization. Nerve stimulator was used and twitched of the affected extremity including the hand brachialis muscles, biceps and the deltoid was obtained at a current of __0.4___MA. After repeated negative aspiration,___20__cc of__0.5%___,__ropivacaine were injected and this was followed with __10___cc of ___.5__% ___Bupivacaine___ . Under ultrasound guidance the local anesthetics were observed surrounding the roots of the brachial plexus. The needle was removed intact and sterile dressing was applied. The patient had stable vital signs, was conscious and in no apparent distress. The patient tolerated the interscalene block of the bracheal plexus well with stable vital signs and was prepared for subsequent surgery.
[2017-10-10] MEDS ORDERED: Sodium Chloride 0.9% 1,000 ML IV SCH (12:00)
[2017-10-10 12:49] LABS: HEMATOCRIT 35.9 % (34.0-47.0); MEAN CELL VOLUME 90.9 fl (81.0-99.0); MEAN CORPUSCULAR HEMOGLOBIN 30.9 pg (27.0-31.0); RED CELL DISTRIBUTION WIDTH 12.9 % (11.5-14.5); WHITE BLOOD COUNT 11.6 K/uL (4.8-10.8)
--- NOTE | 2017-10-10 14:40 | RAD ---
PROCEDURE: Radiographs of the Right Shoulder HISTORY: s/p ORIF Rt proximal humerus fx COMPARISON: Right shoulder radiographs 10/07/2017. FINDINGS: BONES: Pain status post open reduction internal fixation of comminuted right humeral head fracture by a solitary compression plate and numerous screws. Skin miguel are identify. No interval fracture or dislocation appreciable. JOINTS: Limited degenerative changes in the acromioclavicular joint. SOFT TISSUES: Mild postop changes seen lateral right shoulder/proximal humerus soft tissues. OTHER FINDINGS: None. IMPRESSION: Status post open reduction internal fixation of proximal right humeral fracture by compression plate and multiple screws.
--- NOTE | 2017-10-10 14:42 | RAD ---
PROCEDURE: Radiographs of the right humerus. HISTORY: s/p ORIF rt prox humerus fx COMPARISON: None. FINDINGS: BONES: Pacing a status post ORIF proximal right humerus as described in separate right shoulder radiograph series also performed 10/02/2017 the exam report. No distal humerus appear unremarkable with postop change seen at the right shoulder /proximal right humerus. SOFT TISSUES: Postop change in at the proximal right upper arm. OTHER FINDINGS: None. IMPRESSION: Status post ORIF proximal right humerus as described above persist separate report right shoulder 10/02/2017 as well.
[2017-10-10] MEDS ORDERED: ceFAZolin IV 1 gm in Dextrose 1 GM/50 ML BAG IVPB ONE (18:00)
--- NOTE | 2017-10-10 22:40 | OP ---
PROCEDURE DATE: 10/10/2017 PREOPERATIVE DIAGNOSES: 1. Right shoulder traumatic proximal humerus fracture. 2. Soft tissue trauma of the proximal shoulder. POSTOPERATIVE DIAGNOSIS: Right shoulder proximal humerus fracture. PROCEDURES: 1. Open reduction and internal fixation of right proximal humerus. 2. Exploration of soft tissue with debridement of the bone and bone removal. 3. Bone grafting of right proximal humerus with internal fixation. 4. Subpectoral biceps tenodesis. 5. Fluoroscopic use, more than 1 hour. ATTENDING PHYSICIAN: Christopher Xie MD. [employer]: Korey Rueda MD. TYPE OF ANESTHESIA: General. ESTIMATED BLOOD LOSS: 150 mL. COMPLICATIONS: None. HISTORY: The patient is a 72-year-old female right-hand dominant who had a traumatic fall, landing on her right shoulder. The patient was seen today in the ER with a CT scan and the x-ray showed a displaced 4-part proximal humerus fracture. I had a detailed discussion with the patient explaining the complex nature of her injury and presented with different options of open reduction and internal fixation versus hemiarthroplasty. I reviewed the risks and benefits of both options with the patient, which included bleeding, infection, nerve vessel damage, continued pain, malunion, nonunion, blood clots, need for further surgery, among others. The patient fully understood the risks and benefits and opted to proceed. DESCRIPTION OF PROCEDURE: On the day of the surgery, the patient was admitted to preoperative holding area. A laterality sheet was completed, confirming the patient's right shoulder to be the correct operative site. The patient's right shoulder was marked and informed consent was signed. The patient was brought into the operating room table. She underwent general anesthesia. She was given appropriate prophylactic antibiotics. She was secured on the beach chair with the head of bed at 70 degrees. The right arm was draped and prepped in standard sterile manner. First, we proceeded with the fluoroscopic images, which showed a displaced nature of the fracture. After a time-out, we proceeded with a standard deltopectoral approach. A 10 cm incision was made. There was extensive soft tissue trauma and bone debridement, which was also removed using a pulse lavage. Next, the fracture fragments were identified. There was extensive comminution; however, the head was found to be intact with good bone quality. The biceps tendon was tenotomized and tenodesed at the subpectoral region. Using a Kenny elevator, the humeral head was elevated. Due to significant bone loss, the decision was made to proceed with an allograft and a cortical strut allograft was used to support the humeral head. Once again, the tack suture was placed into the lesser and greater tuberosities and were closed after the bone grafting. Provisional K-wire was placed to hold provisional reduction, the fluoroscopic x-rays showing adequate fracture reduction. Next, a Synthes proximal humerus locking plate was used. It was placed lateral and posterior through bicipital groove and the position of the plate was confirmed with AP radiographs. First, we proceeded with a cortical screw in the shaft and next multiple locking screws were placed in the proximal humerus . Two additional locking screws were placed in the shaft and the final radiographs were taken, showing adequate fracture reduction and the lesser and greater tuberosity were tied and repaired to the plate to provide additional fixation. The wound was copiously irrigated. The wound was closed in standard sterile manner, sterile dressing was applied. The patient was extubated. She was transferred to the stretcher and taken to the recovery room. There were no complication of surgery. Dr. Korey Rueda is a board certified orthopedic surgeon, who was present for the entirety of the case as his participation was crucial in soft tissue dissection, retraction of critical neurovascular structures, fracture reduction, and successful completion of the surgery. Christopher Xie MD [facility]
--- NOTE | 2017-10-10 23:55 | CP.PCM.PN ---
Subjective - Date & Time of Evaluation Date of Evaluation: 10/10/17 Time of Evaluation: 18:45 Objective - Vital Signs/Intake and Output Vital Signs (last 24 hours): Temp Pulse Resp BP Pulse Ox 98.6 F 65 20 125/65 98 10/10/17 17:25 10/10/17 17:25 10/10/17 17:25 10/10/17 17:25 10/10/17 17:25 Intake and Output: 10/10/17 10/11/17 18:59 06:59 Intake Total 1700 Balance 1700 - Medications Medications: Current Medications Acetaminophen (Tylenol 325mg Tab) 650 mg PO Q6 PRN PRN Reason: Pain, moderate (4-7) Last Admin: 10/09/17 17:29 Dose: 650 mg Alprazolam (Xanax) 0.75 mg PO HS PRN PRN Reason: anxiety/insomnia Stop: 10/14/17 23:00 Last Admin: 10/10/17 21:06 Dose: 0.75 mg Aspirin (Aspirin) 325 mg PO BID [facility] Bisoprolol Fumarate (Zebeta) 1.25 mg PO DAILY [facility] Last Admin: 10/10/17 09:00 Dose: Not Given Heparin Sodium (Porcine) (Heparin) 5,000 units SC Q12 [facility] PRN Reason: Protocol Last Admin: 10/10/17 21:06 Dose: 5,000 units Hydrochlorothiazide (Microzide) 12.5 mg PO DAILY [facility] Last Admin: 10/10/17 09:00 Dose: Not Given Dextrose/Sodium Chloride (Dextrose 5%/0.45% Ns 1000 Ml) 1,000 mls @ 80 mls/hr IV .[id number] [facility] Stop: 10/11/17 06:31 Last Admin: 10/10/17 19:15 Dose: Not Given Cefazolin Sodium/Dextrose (Ancef Iv 1 Gm Duplex) 1 gm in 50 mls @ 50 mls/hr IVPB ONCE ONE PRN Reason: Protocol Stop: 10/11/17 02:59 Lisinopril (Zestril) 10 mg PO DAILY [facility] Last Admin: 10/10/17 09:00 Dose: Not Given Ondansetron HCl (Zofran Inj) 4 mg IVP Q6 PRN PRN Reason: Nausea/Vomiting Last Admin: 10/09/17 10:43 Dose: 4 mg - Labs Labs: 10/10/17 11:52 10/10/17 06:05 PT 11.4 Seconds (9.8-13.1) 10/07/17 19:20 INR 1.0 (0.9-1.2) 10/07/17 19:20 APTT 34.3 Seconds (25.6-37.1) 10/07/17 19:20
[2017-10-11] MEDS ORDERED: ceFAZolin IV 1 gm in Dextrose 1 GM/50 ML BAG IVPB ONE (02:00)
[2017-10-11] MEDS ORDERED: Oxycodone/Acetaminophen 5/325 mg Tab PO PRN ×3 (06:47→08:45)
[2017-10-11 06:58] LABS: BLOOD UREA NITROGEN 22 mg/dl (7-17); CALCIUM 8.5 mg/dL (8.4-10.2); CARBON DIOXIDE 24 mmol/L (22-30); CHLORIDE 101 mmol/L (98-107); GFR AFRICAN-AMERICAN > 60; GLUCOSE,RANDOM 121 mg/dL (65-105); POTASSIUM 3.9 MMOL/L (3.6-5.0)
[2017-10-11 07:05] LABS: HEMATOCRIT 33.4 % (34.0-47.0); LYMPH % 10.6 % (20.0-40.0); MEAN CELL VOLUME 90.9 fl (81.0-99.0); MEAN CORPUSCULAR HEMOGLOBIN 31.1 pg (27.0-31.0); MEAN CORPUSCULAR HGB CONC 34.2 g/dL (33.0-37.0); MONO # 0.9 K/uL (0.0-0.8); MONO % 9.5 % (0.0-10.0); NEUT # 7.9 K/uL (1.8-7.0); NEUT % 79.9 % (50.0-75.0); RED CELL DISTRIBUTION WIDTH 12.5 % (11.5-14.5); WHITE BLOOD COUNT 9.9 K/uL (4.8-10.8)
[2017-10-11 07:13] LABS: SODIUM 135 mmol/l (132-148)
--- NOTE | 2017-10-11 09:04 | RAD ---
PROCEDURE: Fluoroscopy greater than 1 hour HISTORY: RIGHT SHOULDER ORIF COMPARISON: None TECHNIQUE: Standard protocol for this study/examination. FINDINGS: Submitted images from the current procedure: 10.0. Total exam DLP: (mGy): Unknown. IMPRESSION: Total fluoroscopic time (continuous mode) utilized during the procedure: 57.3 seconds.
--- NOTE | 2017-10-11 10:26 | CP.PCM.PN ---
Subjective - Date & Time of Evaluation Date of Evaluation: 10/11/17 Time of Evaluation: 08:45 - Subjective Subjective: S/P ORIF Rt prox humerus fx POD#1 Pt seen and examined at bedside, comfortable in bed Pt c/o mild right arm pain Pt denies any SOB, chest pain, N/V/D, numbness/tingling RUE Objective - Vital Signs/Intake and Output Vital Signs (last 24 hours): Temp Pulse Resp BP Pulse Ox 98.2 F 60 20 152/81 H 95 10/11/17 08:47 10/11/17 08:47 10/11/17 08:47 10/11/17 08:47 10/11/17 08:47 - Medications Medications: Current Medications Acetaminophen (Tylenol 325mg Tab) 650 mg PO Q6 PRN PRN Reason: Pain, moderate (4-7) Last Admin: 10/11/17 05:44 Dose: 650 mg Alprazolam (Xanax) 0.75 mg PO HS PRN PRN Reason: anxiety/insomnia Stop: 10/14/17 23:00 Last Admin: 10/10/17 21:06 Dose: 0.75 mg Aspirin (Aspirin) 325 mg PO BID [facility] Last Admin: 10/11/17 10:04 Dose: 325 mg Bisoprolol Fumarate (Zebeta) 1.25 mg PO DAILY [facility] Last Admin: 10/11/17 10:04 Dose: 1.25 mg Enoxaparin Sodium (Lovenox) 40 mg SC DAILY [facility] PRN Reason: Protocol Hydrochlorothiazide (Microzide) 12.5 mg PO DAILY [facility] Last Admin: 10/11/17 10:05 Dose: 12.5 mg Sodium Chloride (Sodium Chloride 0.45%) 1,000 mls @ 75 mls/hr IV .[id number] [facility] Stop: 10/12/17 10:21 Lisinopril (Zestril) 10 mg PO DAILY [facility] Last Admin: 10/11/17 10:05 Dose: 10 mg Ondansetron HCl (Zofran Inj) 4 mg IVP Q6 PRN PRN Reason: Nausea/Vomiting Last Admin: 10/11/17 06:55 Dose: 4 mg Oxycodone/Acetaminophen (Percocet 5/325 Mg Tab) 2 tab PO Q4 PRN PRN Reason: Pain, severe (8-10) Stop: 10/14/17 08:46 Oxycodone/Acetaminophen (Percocet 5/325 Mg Tab) 1 tab PO Q4 PRN PRN Reason: Pain, moderate (4-7) Stop: 10/14/17 09:01 - Labs Labs: 10/11/17 05:30 10/11/17 05:30 PT 11.4 Seconds (9.8-13.1) 10/07/17 19:20 INR 1.0 (0.9-1.2) 10/07/17 19:20 APTT 34.3 Seconds (25.6-37.1) 10/07/17 19:20 - Constitutional Appears: Well, No Acute Distress - Respiratory Exam Respiratory Exam: Clear to Ausculation Bilateral, NORMAL BREATHING PATTERN - Cardiovascular Exam Cardiovascular Exam: REGULAR RHYTHM, RRR - Extremities Exam Additional comments: RUE: shoulder dressing C/D/I All compartments are soft and compressible N/V intact distally Radial and ulna pulses wnl Cap refill <2sec Assessment and Plan - Assessment and Plan (Free Text) Assessment: 72 yo F s/p ORIF prox humerus fx POD#1 Plan: Pain Control DVT ppx Incentive Spirometer PT/OT - NWB RUE F/U labs
[2017-10-11] MEDS: Enoxaparin 40 mg Syringe SC SCH (10:30)
[2017-10-11] MEDS: Sodium Chloride 0.45% 1,000 ML IV SCH ×2 (12:00→23:55)
[2017-10-11] MEDS: Oxycodone/Acetaminophen 5/325 mg Tab PO PRN ×2 (15:40→17:22)
[2017-10-12] MEDS: Oxycodone/Acetaminophen 5/325 mg Tab PO PRN ×3 (00:20→17:01)
--- NOTE | 2017-10-12 00:54 | CP.PCM.PN ---
Subjective - Date & Time of Evaluation Date of Evaluation: 10/11/17 Time of Evaluation: 13:00 Objective - Vital Signs/Intake and Output Vital Signs (last 24 hours): Temp Pulse Resp BP Pulse Ox 99 F 66 20 102/66 99 10/12/17 00:08 10/12/17 00:08 10/12/17 00:08 10/12/17 00:08 10/12/17 00:08 - Medications Medications: Current Medications Acetaminophen (Tylenol 325mg Tab) 650 mg PO Q6 PRN PRN Reason: Pain, moderate (4-7) Last Admin: 10/11/17 05:44 Dose: 650 mg Alprazolam (Xanax) 0.75 mg PO HS PRN PRN Reason: anxiety/insomnia Stop: 10/14/17 23:00 Last Admin: 10/11/17 21:01 Dose: 0.75 mg Aspirin (Aspirin) 325 mg PO BID [facility] Last Admin: 10/11/17 17:23 Dose: 325 mg Bisoprolol Fumarate (Zebeta) 1.25 mg PO DAILY [facility] Last Admin: 10/11/17 10:04 Dose: 1.25 mg Enoxaparin Sodium (Lovenox) 40 mg SC DAILY [facility] PRN Reason: Protocol Last Admin: 10/11/17 10:30 Dose: Not Given Hydrochlorothiazide (Microzide) 12.5 mg PO DAILY [facility] Last Admin: 10/11/17 10:05 Dose: 12.5 mg Sodium Chloride (Sodium Chloride 0.45%) 1,000 mls @ 75 mls/hr IV .[id number] [facility] Stop: 10/12/17 10:21 Last Admin: 10/11/17 12:00 Dose: 75 mls/hr Lactulose (Enulose) 20 gm PO DAILY PRN PRN Reason: Constipation Last Admin: 10/11/17 14:12 Dose: 20 gm Lisinopril (Zestril) 10 mg PO DAILY [facility] Last Admin: 10/11/17 10:05 Dose: 10 mg Ondansetron HCl (Zofran Inj) 4 mg IVP Q6 PRN PRN Reason: Nausea/Vomiting Last Admin: 10/11/17 06:55 Dose: 4 mg Oxycodone/Acetaminophen (Percocet 5/325 Mg Tab) 2 tab PO Q4 PRN PRN Reason: Pain, severe (8-10) Stop: 10/14/17 08:46 Oxycodone/Acetaminophen (Percocet 5/325 Mg Tab) 1 tab PO Q4 PRN PRN Reason: Pain, moderate (4-7) Stop: 10/14/17 09:01 Last Admin: 10/12/17 00:20 Dose: 1 tab - Labs Labs: 10/11/17 05:30 10/11/17 05:30 PT 11.4 Seconds (9.8-13.1) 10/07/17 19:20 INR 1.0 (0.9-1.2) 10/07/17 19:20 APTT 34.3 Seconds (25.6-37.1) 10/07/17 19:20
[2017-10-12 06:28] LABS: BASO % 0.4 % (0.0-2.0); EOS # 0.1 K/uL (0.0-0.7); EOS % 1.3 % (0.0-4.0); HEMATOCRIT 35.9 % (34.0-47.0); LYMPH # 1.8 K/uL (1.0-4.3); LYMPH % 18.6 % (20.0-40.0); MEAN CELL VOLUME 93.3 fl (81.0-99.0); MEAN CORPUSCULAR HEMOGLOBIN 31.1 pg (27.0-31.0); MEAN CORPUSCULAR HGB CONC 33.3 g/dL (33.0-37.0); MEAN PLATELET VOLUME 8.6 fl (7.2-11.7); MONO # 0.8 K/uL (0.0-0.8); MONO % 8.6 % (0.0-10.0); NEUT # 6.7 K/uL (1.8-7.0); NEUT % 71.1 % (50.0-75.0); NRBC % 0.1 % (0.0-0.0); RED CELL DISTRIBUTION WIDTH 13.2 % (11.5-14.5); WHITE BLOOD COUNT 9.5 K/uL (4.8-10.8)
[2017-10-12 07:16] LABS: CALCIUM 8.3 mg/dL (8.4-10.2); POTASSIUM 4.1 MMOL/L (3.6-5.0)
[2017-10-12] MEDS: Enoxaparin 40 mg Syringe SC SCH (10:24)
[2017-10-12] MEDS: Sodium Chloride 0.9% 1,000 ML IV SCH (15:28)
[2017-10-13] MEDS: Oxycodone/Acetaminophen 5/325 mg Tab PO PRN ×3 (00:07→18:54)
--- NOTE | 2017-10-13 00:11 | CP.PCM.PN ---
Subjective - Date & Time of Evaluation Date of Evaluation: 10/12/17 Time of Evaluation: 14:20 Objective - Vital Signs/Intake and Output Vital Signs (last 24 hours): Temp Pulse Resp BP Pulse Ox 99.2 F 80 20 124/85 98 10/12/17 16:36 10/12/17 16:36 10/12/17 16:36 10/12/17 16:36 10/12/17 16:36 - Medications Medications: Current Medications Acetaminophen (Tylenol 325mg Tab) 650 mg PO Q6 PRN PRN Reason: Pain, moderate (4-7) Last Admin: 10/11/17 05:44 Dose: 650 mg Alprazolam (Xanax) 0.75 mg PO HS PRN PRN Reason: anxiety/insomnia Stop: 10/14/17 23:00 Last Admin: 10/12/17 21:45 Dose: 0.75 mg Aspirin (Aspirin) 325 mg PO BID [facility] Last Admin: 10/12/17 17:31 Dose: 325 mg Bisoprolol Fumarate (Zebeta) 1.25 mg PO BID@0900,2100 [facility] Last Admin: 10/12/17 21:44 Dose: 1.25 mg Enoxaparin Sodium (Lovenox) 40 mg SC DAILY [facility] PRN Reason: Protocol Last Admin: 10/12/17 10:24 Dose: 40 mg Hydrochlorothiazide (Microzide) 12.5 mg PO DAILY [facility] Last Admin: 10/12/17 08:04 Dose: 12.5 mg Sodium Chloride (Sodium Chloride 0.9%) 1,000 mls @ 75 mls/hr IV .[id number] [facility] Stop: 10/13/17 13:20 Last Admin: 10/12/17 15:28 Dose: 75 mls/hr Lactulose (Enulose) 20 gm PO DAILY PRN PRN Reason: Constipation Last Admin: 10/11/17 14:12 Dose: 20 gm Lisinopril (Zestril) 10 mg PO DAILY [facility] Last Admin: 10/12/17 08:03 Dose: 10 mg Ondansetron HCl (Zofran Inj) 4 mg IVP Q6 PRN PRN Reason: Nausea/Vomiting Last Admin: 10/11/17 06:55 Dose: 4 mg Oxycodone/Acetaminophen (Percocet 5/325 Mg Tab) 2 tab PO Q4 PRN PRN Reason: Pain, severe (8-10) Stop: 10/14/17 08:46 Oxycodone/Acetaminophen (Percocet 5/325 Mg Tab) 1 tab PO Q4 PRN PRN Reason: Pain, moderate (4-7) Stop: 10/14/17 09:01 Last Admin: 10/13/17 00:07 Dose: 1 tab - Labs Labs: 10/12/17 06:00 10/12/17 06:00 PT 11.4 Seconds (9.8-13.1) 10/07/17 19:20 INR 1.0 (0.9-1.2) 10/07/17 19:20 APTT 34.3 Seconds (25.6-37.1) 10/07/17 19:20
[2017-10-13] MEDS: Sodium Chloride 0.9% 1,000 ML IV SCH ×2 (02:50→17:47)
[2017-10-13 07:35] LABS: BLOOD UREA NITROGEN 30 mg/dl (7-17); CALCIUM 8.8 mg/dL (8.4-10.2); CARBON DIOXIDE 29 mmol/L (22-30); CHLORIDE 106 mmol/L (98-107); GFR AFRICAN-AMERICAN > 60; GLUCOSE,RANDOM 108 mg/dL (65-105); POTASSIUM 3.9 MMOL/L (3.6-5.0); SODIUM 142 mmol/l (132-148)
[2017-10-13] MEDS: Enoxaparin 40 mg Syringe SC SCH (10:07)
[2017-10-13] MEDS ORDERED: Metoprolol 1 mg/ml Inj IVP ONE ×2 (16:19→16:25)
--- NOTE | 2017-10-13 16:45 | PCM.RRT ---
I.Reason for FRICTION WELDING MACHINE OPERATOR - A) Acute Change in Patient: Subjective: FRICTION WELDING MACHINE OPERATOR Start Time: 4:10pm FRICTION WELDING MACHINE OPERATOR Reason: Palpitations S: FRICTION WELDING MACHINE OPERATOR called by RN because patient complained of palpitations. Denied CP, SOB. O: HR 130-140's, BP 119/77, O2 sat 98 on 2 L NC General: NAD, mildly anxious, sitting up in bed alert and oriented. 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 Labs were reviewed. Elevated BUN noted. Increased heart rate likely 2/2 to volume contraction. Repeat vitals s/p interventions HR 70 Plan: Tachycardia resolved. Continue to monitor patient Attending MD: Dr. Velasco FRICTION WELDING MACHINE OPERATOR End Time: 4:25pm
--- NOTE | 2017-10-13 17:40 | CP.PCM.PN ---
Subjective - Date & Time of Evaluation Date of Evaluation: 10/13/17 Time of Evaluation: 13:40 - Subjective Subjective: 72 yo F s/p ORIF Rt Prox humerus fx Pt seen and examined at bedside at approx 1:40pm, before events of SHOES SALESPERSON occurred Pt was comfortable in bed, in NAD Pt c/o mild right arm pain, currently well controlled with pain meds Pt denied any SOB, chest pain, palpitations, N/V/D, numbness/tingling RUE Objective - Vital Signs/Intake and Output Vital Signs (last 24 hours): Temp Pulse Resp BP Pulse Ox 98.5 F 140 H 18 124/75 96 10/13/17 08:40 10/13/17 16:42 10/13/17 08:40 10/13/17 16:42 10/13/17 08:40 - Medications Medications: Current Medications Acetaminophen (Tylenol 325mg Tab) 650 mg PO Q6 PRN PRN Reason: Pain, moderate (4-7) Last Admin: 10/11/17 05:44 Dose: 650 mg Alprazolam (Xanax) 0.75 mg PO HS PRN PRN Reason: anxiety/insomnia Stop: 10/14/17 23:00 Last Admin: 10/12/17 21:45 Dose: 0.75 mg Aspirin (Aspirin) 325 mg PO BID [facility] Last Admin: 10/13/17 10:07 Dose: 325 mg Bisoprolol Fumarate (Zebeta) 1.25 mg PO BID@0900,2100 [facility] Last Admin: 10/13/17 10:08 Dose: 1.25 mg Enoxaparin Sodium (Lovenox) 40 mg SC DAILY [facility] PRN Reason: Protocol Last Admin: 10/13/17 10:07 Dose: 40 mg Hydrochlorothiazide (Microzide) 12.5 mg PO DAILY [facility] Last Admin: 10/13/17 10:07 Dose: 12.5 mg Sodium Chloride (Sodium Chloride 0.9%) 1,000 mls @ 80 mls/hr IV .[id number] [facility] Stop: 10/14/17 16:14 Lactulose (Enulose) 20 gm PO DAILY PRN PRN Reason: Constipation Last Admin: 10/13/17 11:54 Dose: 20 gm Lisinopril (Zestril) 10 mg PO DAILY [facility] Last Admin: 10/13/17 10:08 Dose: 10 mg Ondansetron HCl (Zofran Inj) 4 mg IVP Q6 PRN PRN Reason: Nausea/Vomiting Last Admin: 10/11/17 06:55 Dose: 4 mg Oxycodone/Acetaminophen (Percocet 5/325 Mg Tab) 2 tab PO Q4 PRN PRN Reason: Pain, severe (8-10) Stop: 10/14/17 08:46 Oxycodone/Acetaminophen (Percocet 5/325 Mg Tab) 1 tab PO Q4 PRN PRN Reason: Pain, moderate (4-7) Stop: 10/14/17 09:01 Last Admin: 10/13/17 07:03 Dose: 1 tab - Labs Labs: 10/12/17 06:00 10/13/17 06:15 PT 11.4 Seconds (9.8-13.1) 10/07/17 19:20 INR 1.0 (0.9-1.2) 10/07/17 19:20 APTT 34.3 Seconds (25.6-37.1) 10/07/17 19:20 - Constitutional Appears: Well, No Acute Distress - Respiratory Exam Respiratory Exam: Clear to Ausculation Bilateral, NORMAL BREATHING PATTERN - Extremities Exam Additional comments: RUE: shoulder dressing C/D/I Sling in place ROM limited All compartments of arm soft and compressible N/V intact distally Radial and ulna pulses wnl Assessment and Plan - Assessment and Plan (Free Text) Assessment: 72 yo F s/p ORIF Rt prox humerus fx POD#3 Plan: Pain control DVT ppx PT/OT - NWB RUE SHOES SALESPERSON events noted D/C planning pending cardiac stability Will continue to monitor pt
--- NOTE | 2017-10-14 00:04 | CP.PCM.PN ---
Subjective - Date & Time of Evaluation Date of Evaluation: 10/13/17 Time of Evaluation: 23:15 Objective - Vital Signs/Intake and Output Vital Signs (last 24 hours): Temp Pulse Resp BP Pulse Ox 98.1 F 135 H 20 111/83 99 10/13/17 19:15 10/13/17 19:15 10/13/17 19:15 10/13/17 19:15 10/13/17 19:15 - Medications Medications: Current Medications Acetaminophen (Tylenol 325mg Tab) 650 mg PO Q6 PRN PRN Reason: Pain, moderate (4-7) Last Admin: 10/11/17 05:44 Dose: 650 mg Alprazolam (Xanax) 0.75 mg PO HS PRN PRN Reason: anxiety/insomnia Stop: 10/14/17 23:00 Last Admin: 10/13/17 21:23 Dose: 0.75 mg Aspirin (Aspirin) 325 mg PO BID [facility] Last Admin: 10/13/17 17:47 Dose: 325 mg Bisoprolol Fumarate (Zebeta) 1.25 mg PO BID@0900,2100 [facility] Last Admin: 10/13/17 22:19 Dose: 1.25 mg Enoxaparin Sodium (Lovenox) 40 mg SC DAILY [facility] PRN Reason: Protocol Last Admin: 10/13/17 10:07 Dose: 40 mg Hydrochlorothiazide (Microzide) 12.5 mg PO DAILY [facility] Last Admin: 10/13/17 10:07 Dose: 12.5 mg Sodium Chloride (Sodium Chloride 0.9%) 1,000 mls @ 80 mls/hr IV .[id number] [facility] Stop: 10/14/17 16:14 Last Admin: 10/13/17 17:47 Dose: 80 mls/hr Lactulose (Enulose) 20 gm PO DAILY PRN PRN Reason: Constipation Last Admin: 10/13/17 11:54 Dose: 20 gm Lisinopril (Zestril) 10 mg PO DAILY [facility] Last Admin: 10/13/17 10:08 Dose: 10 mg Metoprolol Tartrate (Lopressor) 50 mg PO Q12 [facility] Ondansetron HCl (Zofran Inj) 4 mg IVP Q6 PRN PRN Reason: Nausea/Vomiting Last Admin: 10/11/17 06:55 Dose: 4 mg Oxycodone/Acetaminophen (Percocet 5/325 Mg Tab) 2 tab PO Q4 PRN PRN Reason: Pain, severe (8-10) Stop: 10/14/17 08:46 Oxycodone/Acetaminophen (Percocet 5/325 Mg Tab) 1 tab PO Q4 PRN PRN Reason: Pain, moderate (4-7) Stop: 10/14/17 09:01 Last Admin: 10/13/17 18:54 Dose: 1 tab - Labs Labs: 10/12/17 06:00 10/13/17 06:15 PT 11.4 Seconds (9.8-13.1) 10/07/17 19:20 INR 1.0 (0.9-1.2) 10/07/17 19:20 APTT 34.3 Seconds (25.6-37.1) 10/07/17 19:20
[2017-10-14] MEDS: Oxycodone/Acetaminophen 5/325 mg Tab PO PRN (01:13)
[2017-10-14] MEDS ORDERED: Oxycodone/Acetaminophen 5/325 mg Tab PO ONE (02:52)
[2017-10-14] MEDS: Sodium Chloride 0.9% 1,000 ML IV SCH (03:16)
[2017-10-14 08:45] LABS: BASO # 0.1 K/uL (0.0-0.2); BASO % 0.9 % (0.0-2.0); EOS # 0.2 K/uL (0.0-0.7); EOS % 2.3 % (0.0-4.0); HEMATOCRIT 34.3 % (34.0-47.0); LYMPH # 2.1 K/uL (1.0-4.3); LYMPH % 23.7 % (20.0-40.0); MEAN CELL VOLUME 92.4 fl (81.0-99.0); MEAN CORPUSCULAR HEMOGLOBIN 30.8 pg (27.0-31.0); MEAN CORPUSCULAR HGB CONC 33.4 g/dL (33.0-37.0); MEAN PLATELET VOLUME 8.5 fl (7.2-11.7); MONO # 0.9 K/uL (0.0-0.8); MONO % 10.6 % (0.0-10.0); NEUT # 5.6 K/uL (1.8-7.0); NEUT % 62.5 % (50.0-75.0); RED CELL DISTRIBUTION WIDTH 12.6 % (11.5-14.5)
[2017-10-14] MEDS: Enoxaparin 40 mg Syringe SC SCH (08:49)
[2017-10-14 08:58] LABS: BLOOD UREA NITROGEN 25 mg/dl (7-17); CALCIUM 8.7 mg/dL (8.4-10.2); CARBON DIOXIDE 25 mmol/L (22-30); CHLORIDE 108 mmol/L (98-107); GFR AFRICAN-AMERICAN > 60; GLUCOSE,RANDOM 109 mg/dL (65-105); MAGNESIUM 2.1 MG/DL (1.6-2.3); SODIUM 143 mmol/l (132-148)
[2017-10-14 09:29] LABS: THYROID STIMULATING HORMONE 1.32 mIU/ML (0.46-4.68)
--- NOTE | 2017-10-14 23:57 | CP.PCM.PN ---
Subjective - Date & Time of Evaluation Date of Evaluation: 10/14/17 Time of Evaluation: 15:00 Objective - Vital Signs/Intake and Output Vital Signs (last 24 hours): Temp Pulse Resp BP Pulse Ox 97.9 F 120 H 20 118/72 97 10/14/17 19:15 10/14/17 22:28 10/14/17 19:15 10/14/17 22:28 10/14/17 19:15 Intake and Output: 10/14/17 10/15/17 18:59 06:59 Intake Total 1460 Output Total 800 Balance 660 - Medications Medications: Current Medications Acetaminophen (Tylenol 325mg Tab) 650 mg PO Q6 PRN PRN Reason: Pain, moderate (4-7) Last Admin: 10/14/17 22:27 Dose: 650 mg Alprazolam (Xanax) 1 mg PO BID [facility] Last Admin: 10/14/17 18:21 Dose: 1 mg Aspirin (Aspirin) 325 mg PO BID [facility] Last Admin: 10/14/17 18:21 Dose: 325 mg Hydrochlorothiazide (Microzide) 12.5 mg PO DAILY [facility] Last Admin: 10/14/17 08:50 Dose: 12.5 mg Lactulose (Enulose) 20 gm PO DAILY PRN PRN Reason: Constipation Last Admin: 10/13/17 11:54 Dose: 20 gm Lisinopril (Zestril) 10 mg PO DAILY [facility] Last Admin: 10/14/17 08:50 Dose: 10 mg Metoprolol Tartrate (Lopressor) 50 mg PO Q12 [facility] Last Admin: 10/14/17 22:28 Dose: 50 mg Ondansetron HCl (Zofran Inj) 4 mg IVP Q6 PRN PRN Reason: Nausea/Vomiting Last Admin: 10/11/17 06:55 Dose: 4 mg - Labs Labs: 10/14/17 08:10 10/14/17 08:10 PT 11.4 Seconds (9.8-13.1) 10/07/17 19:20 INR 1.0 (0.9-1.2) 10/07/17 19:20 APTT 34.3 Seconds (25.6-37.1) 10/07/17 19:20
[2017-10-15] MEDS ORDERED: Potassium Chloride 20 mEq ER Tab PO ONE (20:47)
[2017-10-16 05:34] LABS: BASO % 0.4 % (0.0-2.0); EOS # 0.2 K/uL (0.0-0.7); LYMPH # 2.1 K/uL (1.0-4.3); LYMPH % 28.8 % (20.0-40.0); MEAN CELL VOLUME 92.7 fl (81.0-99.0); MEAN CORPUSCULAR HEMOGLOBIN 30.3 pg (27.0-31.0); MEAN CORPUSCULAR HGB CONC 32.7 g/dL (33.0-37.0); MEAN PLATELET VOLUME 8.6 fl (7.2-11.7); MONO # 0.8 K/uL (0.0-0.8); MONO % 10.6 % (0.0-10.0); NEUT # 4.1 K/uL (1.8-7.0); NEUT % 57.2 % (50.0-75.0); NRBC % 0.2 % (0.0-0.0); RED CELL DISTRIBUTION WIDTH 12.6 % (11.5-14.5); WHITE BLOOD COUNT 7.2 K/uL (4.8-10.8)
[2017-10-16 05:44] LABS: BLOOD UREA NITROGEN 24 mg/dl (7-17); CALCIUM 8.6 mg/dL (8.4-10.2); CARBON DIOXIDE 25 mmol/L (22-30); CHLORIDE 110 mmol/L (98-107); GFR AFRICAN-AMERICAN > 60; GLUCOSE,RANDOM 105 mg/dL (65-105); POTASSIUM 4.7 MMOL/L (3.6-5.0); SODIUM 144 mmol/l (132-148)
[2017-10-16] MEDS ORDERED: Enoxaparin 40 mg Syringe SC SCH (21:00)
--- NOTE | 2017-10-16 23:38 | CP.PCM.PN ---
Subjective - Date & Time of Evaluation Date of Evaluation: 10/16/17 Time of Evaluation: 18:45 - Subjective Subjective: Seen and examined at the bed side. Persistent A fib/Flutter on Telemonitoring despite high dose BB. Patient denies Chest pain, palpitation, lightheadedness or dyspnea. Process Control Supervisor increased the Metoprolol to 150mg BID from 100mg BID today, and will continue to monitor for BP and HR. TSH was normal. Objective - Vital Signs/Intake and Output Vital Signs (last 24 hours): Temp Pulse Resp BP Pulse Ox 99 F 122 H 20 108/74 98 10/16/17 19:55 10/16/17 22:19 10/16/17 19:55 10/16/17 22:19 10/16/17 19:55 - Medications Medications: Current Medications Acetaminophen (Tylenol 325mg Tab) 650 mg PO Q6 PRN PRN Reason: Pain, moderate (4-7) Last Admin: 10/15/17 21:04 Dose: 650 mg Alprazolam (Xanax) 1 mg PO BID [facility] Last Admin: 10/16/17 21:12 Dose: 1 mg Aspirin (Aspirin) 325 mg PO BID [facility] Last Admin: 10/16/17 16:59 Dose: 325 mg Enoxaparin Sodium (Lovenox) 40 mg SC DAILY [facility] PRN Reason: Protocol Last Admin: 10/16/17 22:20 Dose: 40 mg Hydrochlorothiazide (Microzide) 12.5 mg PO DAILY [facility] Last Admin: 10/16/17 08:27 Dose: 12.5 mg Lactulose (Enulose) 20 gm PO DAILY PRN PRN Reason: Constipation Last Admin: 10/15/17 11:43 Dose: 20 gm Lisinopril (Zestril) 10 mg PO DAILY [facility] Last Admin: 10/16/17 08:27 Dose: 10 mg Metoprolol Tartrate (Lopressor) 150 mg PO Q12 [facility] Last Admin: 10/16/17 22:19 Dose: 150 mg Ondansetron HCl (Zofran Inj) 4 mg IVP Q6 PRN PRN Reason: Nausea/Vomiting Last Admin: 10/11/17 06:55 Dose: 4 mg - Labs Labs: 10/16/17 04:20 10/16/17 04:20 PT 11.4 Seconds (9.8-13.1) 10/07/17 19:20 INR 1.0 (0.9-1.2) 10/07/17 19:20 APTT 34.3 Seconds (25.6-37.1) 10/07/17 19:20 - Constitutional Appears: Well, No Acute Distress - Head Exam Head Exam: ATRAUMATIC, NORMAL INSPECTION, NORMOCEPHALIC - Eye Exam Eye Exam: EOMI, Normal appearance, PERRL Pupil Exam: NORMAL ACCOMODATION, PERRL - ENT Exam ENT Exam: Mucous Membranes Moist, Normal Exam - Neck Exam Neck Exam: Full ROM, Normal Inspection. absent: Lymphadenopathy - Respiratory Exam Respiratory Exam: Clear to Ausculation Bilateral, NORMAL BREATHING PATTERN - Cardiovascular Exam Cardiovascular Exam: Tachycardia, Irregular Rhythm, +S1, +S2. absent: Murmur - GI/Abdominal Exam GI & Abdominal Exam: Soft, Normal Bowel Sounds. absent: Tenderness - Extremities Exam Extremities Exam: Full ROM, Normal Capillary Refill, Normal Inspection. absent : Joint Swelling, Pedal Edema - Back Exam Back Exam: NORMAL INSPECTION - Neurological Exam Neurological Exam: Alert, Awake, CN II-XII Intact, Normal Gait, Oriented x3 - Psychiatric Exam Psychiatric exam: Normal Affect, Normal Mood - Skin Skin Exam: Dry, Intact, Normal Color, Warm Assessment and Plan (1) Atrial fibrillation and flutter Assessment & Plan: Continue Lopressor 150mg BID Will start Cardizem Infusion for Persistent RVR>140 Normal TSH and Echocardiogram Process Control Supervisor onboard Status: Acute (2) Proximal humerus fracture Assessment & Plan: S/P ORIF Limited ROM at the Right Shoulder Continue PT/OT Ortho Follow up Status: Acute (3) Hypertension Status: Chronic
[2017-10-17 05:31] LABS: BASO % 0.6 % (0.0-2.0); EOS # 0.3 K/uL (0.0-0.7); HEMATOCRIT 33.2 % (34.0-47.0); LYMPH # 2.9 K/uL (1.0-4.3); LYMPH % 33.9 % (20.0-40.0); MEAN CELL VOLUME 92.3 fl (81.0-99.0); MEAN CORPUSCULAR HEMOGLOBIN 30.9 pg (27.0-31.0); MEAN CORPUSCULAR HGB CONC 33.4 g/dL (33.0-37.0); MEAN PLATELET VOLUME 8.5 fl (7.2-11.7); MONO # 0.8 K/uL (0.0-0.8); MONO % 9.1 % (0.0-10.0); NEUT # 4.6 K/uL (1.8-7.0); NEUT % 53.4 % (50.0-75.0); RED CELL DISTRIBUTION WIDTH 12.9 % (11.5-14.5); WHITE BLOOD COUNT 8.6 K/uL (4.8-10.8)
[2017-10-17 05:37] LABS: BLOOD UREA NITROGEN 24 mg/dl (7-17); CARBON DIOXIDE 24 mmol/L (22-30); CHLORIDE 109 mmol/L (98-107); GFR AFRICAN-AMERICAN > 60; GLUCOSE,RANDOM 109 mg/dL (65-105); POTASSIUM 4.3 MMOL/L (3.6-5.0); SODIUM 143 mmol/l (132-148)
[2017-10-17] MEDS ORDERED: Digoxin 250 mcg (0.25 mg) Tab PO ONE (08:32)
--- NOTE | 2017-10-17 08:40 | CP.PCM.PN ---
Subjective - Date & Time of Evaluation Date of Evaluation: 10/17/17 Time of Evaluation: 08:15 - Subjective Subjective: Laying virtually flat in bed, comfortable, can carry on conversation Has had palpitations on sitting up in bed Telemetry shows persistent A Flutter/ fib with HR 120-130 BPM even after Metoprolol was raised frm 100 mg BID to 150 mg Will add Digoxin Pt's BP 114/70 mm HG (HCTZ was D/Fidencio) Lovenox was D/Fidencio Pt started on Xarelto (GFR>60 Ml/min) Objective - Vital Signs/Intake and Output Vital Signs (last 24 hours): Temp Pulse Resp BP Pulse Ox 98.4 F 104 H 18 107/70 98 10/17/17 05:00 10/17/17 05:00 10/17/17 05:00 10/17/17 05:00 10/17/17 05:00 - Medications Medications: Current Medications Acetaminophen (Tylenol 325mg Tab) 650 mg PO Q6 PRN PRN Reason: Pain, moderate (4-7) Last Admin: 10/17/17 00:40 Dose: 650 mg Alprazolam (Xanax) 1 mg PO BID [facility] Last Admin: 10/16/17 21:12 Dose: 1 mg Aspirin (Aspirin) 325 mg PO BID [facility] Last Admin: 10/16/17 16:59 Dose: 325 mg Digoxin (Lanoxin) 0.5 mg PO ONCE ONE Stop: 10/17/17 08:33 Lactulose (Enulose) 20 gm PO DAILY PRN PRN Reason: Constipation Last Admin: 10/15/17 11:43 Dose: 20 gm Lisinopril (Zestril) 10 mg PO DAILY [facility] Last Admin: 10/16/17 08:27 Dose: 10 mg Metoprolol Tartrate (Lopressor) 150 mg PO Q12 [facility] Last Admin: 10/16/17 22:19 Dose: 150 mg Ondansetron HCl (Zofran Inj) 4 mg IVP Q6 PRN PRN Reason: Nausea/Vomiting Last Admin: 10/11/17 06:55 Dose: 4 mg Rivaroxaban (Xarelto) 20 mg PO QD5 [facility] PRN Reason: Protocol - Labs Labs: 10/17/17 05:00 10/17/17 05:00 PT 11.4 Seconds (9.8-13.1) 10/07/17 19:20 INR 1.0 (0.9-1.2) 10/07/17 19:20 APTT 34.3 Seconds (25.6-37.1) 10/07/17 19:20
--- NOTE | 2017-10-17 11:21 | CARD ---
APPROVED REPORT EKG Measurement Heart [id number] <Conclusion> Atrial flutter with variable AV block Nonspecific ST and T wave abnormality Abnormal ECG
[2017-10-17] MEDS: Digoxin 250 mcg (0.25 mg) Tab PO SCH ×2 (20:17→22:00)
[2017-10-18] MEDS ORDERED: Digoxin 250 mcg (0.25 mg) Tab PO ONE (02:00)
[2017-10-18 06:17] LABS: BASO # 0.1 K/uL (0.0-0.2); BASO % 0.7 % (0.0-2.0); EOS # 0.2 K/uL (0.0-0.7); HEMATOCRIT 34.6 % (34.0-47.0); LYMPH # 2.7 K/uL (1.0-4.3); LYMPH % 34.2 % (20.0-40.0); MEAN CELL VOLUME 92.1 fl (81.0-99.0); MEAN CORPUSCULAR HEMOGLOBIN 30.3 pg (27.0-31.0); MEAN CORPUSCULAR HGB CONC 32.9 g/dL (33.0-37.0); MEAN PLATELET VOLUME 8.6 fl (7.2-11.7); MONO # 0.8 K/uL (0.0-0.8); MONO % 10.1 % (0.0-10.0); RED CELL DISTRIBUTION WIDTH 12.5 % (11.5-14.5); WHITE BLOOD COUNT 7.8 K/uL (4.8-10.8)
[2017-10-18 06:22] LABS: BLOOD UREA NITROGEN 20 mg/dl (7-17); CALCIUM 9.3 mg/dL (8.4-10.2); CARBON DIOXIDE 26 mmol/L (22-30); CHLORIDE 108 mmol/L (98-107); GFR AFRICAN-AMERICAN > 60; GLUCOSE,RANDOM 108 mg/dL (65-105); POTASSIUM 4.5 MMOL/L (3.6-5.0); SODIUM 144 mmol/l (132-148)
[2017-10-18] MEDS ORDERED: Digoxin 500 mcg/2ml (0.5 mg/2ml) Inj IVP ONE (09:20)
[2017-10-18 09:22] VITALS: PULSE 154
--- NOTE | 2017-10-18 12:01 | CP.PCM.PCO ---
Assessment & Plan - Assessment and Plan (Free Text) Assessment: pt. sitting oob to chair, feels well, denies sob, cp, palpitation, dizziness Tele in AF/Aflutter 100-130 s/p Digoxin 0.125 iv stat this morning per recommendation pt. now ambulating with PT , HR 70- 80, doing well with PT pt. cleared for discharge to Home today by and Rx for digoxin, metoprolol, xarelto provided cont. all other home meds pt. to f/u with in 1 week
[2017-10-18 12:47] VITALS: O2SAT 98
[2017-10-18 15:57] VITALS: BP 95/66; PULSE 73; RESP 18; TEMP 99
== END 2017-10-18 17:14 | disposition home or self-care (01) | DRG 493 ==
LOC: SUPCPDRO 16:44 → H.ER 16:44 → H.ERHOLD 20:11 → H.MEDSURG1 21:43 → H.TEL 10-13 17:40
PROVIDERS: ADMIT Internal Medicine; ATTEND Internal Medicine
PROC: 3E0234Z Introduction of Serum, Toxoid and Vaccine into Muscle, Percutaneous Approach (ICD-10-PCS; 2017-10-08)
PROC: 0PUF0KZ Supplement Right Humeral Shaft with Nonautologous Tissue Substitute, Open Approach (ICD-10-PCS; 2017-10-10)
PROC: 3E0T3BZ Introduction of Anesthetic Agent into Peripheral Nerves and Plexi, Percutaneous Approach (ICD-10-PCS; 2017-10-10)
PROC: 0PSF04Z Reposition Right Humeral Shaft with Internal Fixation Device, Open Approach (ICD-10-PCS; principal; 2017-10-10 09:00)
PROC: 0LS30ZZ Reposition Right Upper Arm Tendon, Open Approach (ICD-10-PCS; 2017-10-10 09:00)
DX: S42.241A 4-part fracture of surgical neck of right humerus, initial encounter for closed fracture (principal); I48.1 Persistent atrial fibrillation; I48.92 Unspecified atrial flutter; W01.0XXA Fall on same level from slipping, tripping and stumbling without subsequent striking against object, initial encounter; Y93.9 Activity, unspecified; I10 Essential (primary) hypertension; Z87.891 Personal history of nicotine dependence; Z23 Encounter for immunization; E66.3 Overweight; Z68.25 Body mass index [BMI] 25.0-25.9, adult